=== PATIENT | male | born 1960 | race Caucasian/White ===

== ENCOUNTER 2019-10-18 14:01 | Emergency (ER) | payer BC ==
[2019-10-18] MEDS ORDERED: Sodium Chloride 0.9% 1,000 ML IV ONE (14:11)
--- NOTE | 2019-10-18 14:24 | EDM.PDOC ---
<Yvan Arreola - Last Filed: 10/18/19 14:31> ED HPI GENERAL MEDICAL PROBLEM - General Chief Complaint: Respiratory Problem Stated Complaint: SOB Time Seen by Provider: 10/18/19 14:04 generalized Pain Score (Numeric/FACES): 6 - Related Data Allergies Allergy/AdvReac Type Severity Reaction Status Date / Time No Known Allergies Allergy Verified 10/18/19 14:13 Home Meds: Home Meds Albuterol [Proair HFA] 1 puff INH ASDIRECTED 10/18/19 [History] Azithromycin 500 mg PO ASDIRECTED 10/18/19 [History] Benzonatate 100 mg PO ASDIRECTED 10/18/19 [History] Zinc 50 mg PO DAILY 14 Days #14 tablet 10/18/19 [Rx] dexAMETHasone [Decadron] 4 mg PO BID 5 Days #10 tablet 10/18/19 [Rx] Course - Vital Signs Text/Narrative:: Attending physician note I have seen and evaluated the patient with the advanced practice provider. Chief Complaint: Shortness of breath and cough Brief HPI: 59-year-old male with a past medical history of COPD presents emergency department with shortness of breath and cough not getting better after started on azithromycin and having had 2 doses. 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 He is unclear if he has had any contact with positive COVID-19 however he may or may not have been exposed. ROS: Reviewed and agree Focused Exam: VITAL SIGNS: Reviewed. GENERAL: Awake, conversant, GCS 15, appears to be mildly ill HEAD: No visible signs of trauma EYES: Pupils equal, EOM grossly intact EARS: Hearing grossly intact. MOUTH: No visible lesions NECK: Appears supple CHEST: No tachypnea, no accessory muscle use,, no audible adventitious breath sounds CARDIAC: Regular rhythm ABDOMEN: Soft, nontender, benign exam NEUROLOGIC EXAM: Awake and Alert, non-focal SKIN: No visible rashes EXTREMITIES: No deformities noted VASCULAR: Appears well perfused Procedure Note: Chest/Pulmonary Ultrasound Self-performed and read; images archived Location: Chest - Bilateral anterior Indication: Evaluation for apnea Probe: phased array -Scattered areas of abnormal pleural line -Scattered areas of B-lines -Significant effusion. No pneumothorax Impression: 1. Concerning moderate probability for COVID-19 versus underlying COPD. Recommend CT of the chest in the presence of no other abnormalities found including no hypoxemia or current fever. Patient does endorse subjective fevers. Signed by Yvan Arreola MD Assessment & Plan: Moderate probability for COVID-19. High probability for COPD exacerbation versus atypical pneumonia. Recommendation is to obtain CBC, complete metabolic panel, LDH, ferritin level, CRP, procalcitonin, and CT of the chest without contrast. Departure - Departure Disposition: Home, Self-Care 01 Clinical Impression: COVID-19 - Discharge Information Prescriptions: dexAMETHasone [Decadron] 4 mg PO BID 5 Days #10 tablet Zinc 50 mg PO DAILY 14 Days #14 tablet Instructions: COVID-19 Referrals: PCP,None [Primary Care Provider] - Forms: ED Department Discharge Additional Instructions: The following information is given to patients seen in the emergency department who are being discharged to home. This information is to outline your options for follow-up care. We provide all patients seen in our emergency department with a follow-up referral. The need for follow-up, as well as the timing and circumstances, are variable depending upon the specifics of your emergency department visit. If you don't have a primary care physician on staff, we will provide you with a referral. We always advise you to contact your personal physician following an emergency department visit to inform them of the circumstance of the visit and for follow-up with them and/or the need for any referrals to a consulting specialist. The emergency department will also refer you to a specialist when appropriate. This referral assures that you have the opportunity for follow-up care with a specialist. All of these measure are taken in an effort to provide you with optimal care, which includes your follow-up. Under all circumstances we always encourage you to contact your private physician who remains a resource for coordinating your care. When calling for follow-up care, please make the office aware that this follow-up is from your recent emergency room visit. If for any reason you are refused follow-up, please contact the [facility] Emergency Department at and asked to speak to the emergency department charge nurse. [facility] [address] [place] [id number] [address] [place] [address] Thank you for choosing the [facility] emergency department in [facility] for your medical needs today. It was a pleasure caring for you. You were seen in the emergency department for COVID -19 and respiratory symptoms. 1. Your COVID-19 screening is positive. That means you do have the coronavirus and are considered contagious. Your vital signs and oxygen saturation are well enough that you were able to monitor your symptoms at home. Continue to monitor for fever, confusion, increased shortness of breath and any of the other symptoms we discussed -if this occurs please return to the emergency room. 2. Please self quarantine over the next 2 weeks. Inform any persons that you have been in contact with since you started becoming symptomatic that you have tested positive; they should be made aware and take the appropriate steps as needed. 3. Stop the Zithromax that was prescribed yesterday. Take the medications as we prescribed as discussed. You can take NyQuil during the evening to help get a restful night sleep. 4. You may alternate Tylenol and ibuprofen as needed for pain and fever management. 5. The [facility] department will be calling you and following up with you. The [place] COVID 19 Hotline phone number , They are open Wednesday - Wednesday 7am - 7pm. Follow up with your primary care provider for re-evaluation and re-testing after the 2 week quarantine (call Elvia Irving and discuss when you should see her). <Tasneem Bain E - Last Filed: 10/18/19 16:43> ED HPI GENERAL MEDICAL PROBLEM - General Source of Information: Reports: Patient History Limitations: Reports: No Limitations - History of Present Illness INITIAL COMMENTS - FREE TEXT/NARRATIVE: HISTORY AND PHYSICAL: History of present illness: Patient is a 59-year-old male who presents to the emergency room who complains of cough and shortness of breath. He states for approximately 2 weeks he has had these mild symptoms but over the past 2 days have been more significant. He was seen yesterday in the clinic and had a chest x-ray, COVID screening results are pending. Patient was placed on azithromycin, Tessalon Perle and oral steroid. He has taken 1 dose of these medications this morning. Patient does have a history of COPD, quit smoking approximately 8 months ago, history of 10 years 1 pack/day. States the shortness of breath is most prevalent when he is "having a coughing attack". Patient denies any fever, chills, headache, change in vision, syncope or near syncope. Denies any chest pain, back pain, shortness of breath or cough. Denies any abdominal pain, nausea, vomiting, diarrhea, constipation or dysuria. Has not noted any blood in urine or stool. Patient has been eating and drinking appropriately. 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 Review of systems: As per history of present illness and below otherwise all systems reviewed and negative. Past medical history: As per history of present illness and as reviewed below otherwise noncontributory. Surgical history: As per history of present illness and as reviewed below otherwise non contributory. Social history: See social history for further information Family history: As per history of present illness and as reviewed below otherwise noncontributory. Physical exam: General: Well-developed and well-nourished 59-year-old male. Alert and oriented. Nontoxic-appearing and in no acute distress. HEENT: Atraumatic, normocephalic, pupils equal and reactive bilaterally, negativ e for conjunctival pallor or scleral icterus, mucous membranes moist, TMs normal bilaterally, throat clear, neck supple, nontender, trachea midline. No drooling or trismus noted. No meningeal signs. No hot potato voice noted. Lungs: Diminished auscultation, breath sounds equal bilaterally, chest nontender. Dry nonproductive cough noted. Heart: S1S2, regular rate and rhythm without overt murmur Abdomen: Soft, nondistended, nontender. Negative for masses or hepatosplenomegaly. Negative for costovertebral tenderness. Pelvis: Stable nontender. Skin: Intact, warm, dry. No lesions or rashes noted. Extremities: Atraumatic, moves all extremities per self without difficulty or deficits, negative for cords or calf pain. Neurovascular unremarkable. Neuro: Awake, alert, oriented. Cranial nerves II through XII unremarkable. Cerebellum unremarkable. Motor and sensory unremarkable throughout. Exam nonfocal. Notes: A bedside ultrasound was done with Dr Arreola. Patient's lab work shows that the patient has COVID-19. His vital signs remained stable. We discussed signs and symptoms that would prompt him to return to the emergency room. He feels comfortable self quarantining home over the next 2 weeks. With the patient permission we did talk with Dr. Irving, whom saw him yesterday. She is currently working in our COVID clinic and states that the [facility] department will be contacting him regarding the next steps. I did encourage him to stop taking the azithromycin and will place on Decadron and [id number] zinc. Supportive care measures were reviewed and discussed. Voices understanding and is agreeable to plan of care. Denies any further questions or concerns at this time. Diagnostics: CBC, CMP, UA, troponin, EKG, 1 view chest, CT chest without contrast, COVID, LDH, Ferritin, CRP, Procalcitonin Therapeutics: IV fluids Prescription: Decadron, Zinc Impression: COVID -19 Plan: 1. Your COVID-19 screening is positive. That means you do have the coronavirus and are considered contagious. Your vital signs and oxygen saturation are well enough that you were able to monitor your symptoms at home. Continue to monitor for fever, confusion, increased shortness of breath and any of the other symptoms we discussed -if this occurs please return to the emergency room. 2. Please self quarantine over the next 2 weeks. Inform any persons that you have been in contact with since you started becoming symptomatic that you have tested positive; they should be made aware and take the appropriate steps as needed. 3. Stop the Zithromycin that was prescribed yesterday. Take the medications as we prescribed as discussed. You can take NyQuil during the evening to help get a restful night sleep. 4. You may alternate Tylenol and ibuprofen as needed for pain and fever m anagement. 5. Follow up with your primary care provider for re-evaluation and re-testing after the 2 week quarantine (call Elvia Irving and discuss when you should see her). Definitive disposition and diagnosis as appropriate pending reevaluation and review of above. ED ROS GENERAL - Review of Systems Review Of Systems: Comprehensive ROS is negative, except as noted in HPI. ED EXAM, GENERAL - Physical Exam Exam: See Below (See dictation) Course - Vital Signs Last Recorded V/S: Last Vital Signs Temp 95.2 F L 10/18/19 14:09 Pulse 68 07/15/20 15:37 Resp 15 10/18/19 15:37 BP 131/86 10/18/19 14:09 Pulse Ox 97 10/18/19 15:37 - Orders/Labs/Meds Orders: Active Orders 24 hr Category Date Time Status EKG Documentation Completion [RC] STAT Care 10/18/19 14:11 Active Chest 1V Frontal [CR] Stat Exams 10/18/19 14:39 Taken Chest wo Cont [CT] Stat Exams 10/18/19 14:24 Ordered CRP, HIGH SENSITIVITY [REF] Stat Lab 10/18/19 15:16 Ordered CULTURE BLOOD [BC] Stat Lab 10/18/19 14:28 Received CULTURE BLOOD [BC] Stat Lab 10/18/19 14:39 Received Sodium Chloride 0.9% [Normal Saline] 1,000 ml Med 10/18/19 14:11 Active IV STAT Blood Culture x2 Reflex Set [OM.PC] Stat Oth 10/18/19 14:24 Ordered Medication Orders Sodium Chloride (Normal Saline) 1,000 mls @ 200 mls/hr IV STAT ONE Stop: 10/18/19 19:10 Last Admin: 10/18/19 14:29 Dose: 200 mls/hr Documented by: CARLOS Labs: Laboratory Tests 10/18/19 10/18/19 10/18/19 Range/Units 14:05 14:05 14:05 WBC 5.30 (4.0-11.0) K/uL RBC 4.83 (4.50-5.90) M/uL Hgb 15.8 (13.0-17.0) g/dL Hct 46.8 (38.0-50.0) % MCV 96.9 (80.0-98.0) fL MCH 32.7 H (27.0-32.0) pg MCHC 33.8 (31.0-37.0) g/dL RDW Std Deviation 46.1 (28.0-62.0) fl RDW Coeff of Karina 13 (11.0-15.0) % Plt Count 198 (150-400) K/uL MPV 9.90 (7.40-12.00) fL Neut % (Auto) 61.1 (48.0-80.0) % Lymph % (Auto) 28.9 (16.0-40.0) % Hale % (Auto) 9.6 (0.0-15.0) % Eos % (Auto) 0.2 (0.0-7.0) % Baso % (Auto) 0.2 (0.0-1.5) % Neut # (Auto) 3.2 (1.4-5.7) K/uL Lymph # (Auto) 1.5 (0.6-2.4) K/uL Hale # (Auto) 0.5 (0.0-0.8) K/uL Eos # (Auto) 0.0 (0.0-0.7) K/uL Baso # (Auto) 0.0 (0.0-0.1) K/uL Nucleated RBC % 0.0 /100WBC Nucleated RBCs # 0 K/uL Lactate 1.1 (0.20-2.00) mmol/L Sodium 140 (136-148) mmol/L Potassium 4.0 (3.5-5.1) mmol/L Chloride 106 (98-107) mmol/L Carbon Dioxide 23.2 (21.0-32.0) mmol/L BUN 10 (7.0-18.0) mg/dL Creatinine 0.9 (0.8-1.3) mg/dL Est Cr Clr Drug Dosing 81.60 mL/min Estimated GFR (MDRD) > 60.0 ml/min Glucose 101 (74-106) mg/dL Calcium 8.7 (8.5-10.1) mg/dL Ferritin (26-388) ng/mL Total Bilirubin 0.6 (0.2-1.0) mg/dL AST 31 (15-37) IU/L ALT 26 (14-63) IU/L Alkaline Phosphatase 123 H (46-116) U/L Lactate Dehydrogenase (81-234) U/L Troponin I < 0.050 (0.000-0.056) ng/mL Total Protein 7.7 (6.4-8.2) g/dL Albumin 4.0 (3.4-5.0) g/dL Globulin 3.7 (2.6-4.0) g/dL Albumin/Globulin Ratio 1.1 (0.9-1.6) Prolactin ng/mL COVID-19 (NATY) (NEGATIVE) 10/18/19 10/18/1920 Range/Units 14:05 14:05 14:55 WBC (4.0-11.0) K/uL RBC (4.50-5.90) M/uL Hgb (13.0-17.0) g/dL Hct (38.0-50.0) % MCV (80.0-98.0) fL MCH (27.0-32.0) pg MCHC (31.0-37.0) g/dL RDW Std Deviation (28.0-62.0) fl RDW Coeff of Karina (11.0-15.0) % Plt Count (150-400) K/uL MPV (7.40-12.00) fL Neut % (Auto) (48.0-80.0) % Lymph % (Auto) (16.0-40.0) % Hale % (Auto) (0.0-15.0) % Eos % (Auto) (0.0-7.0) % Baso % (Auto) (0.0-1.5) % Neut # (Auto) (1.4-5.7) K/uL Lymph # (Auto) (0.6-2.4) K/uL Hale # (Auto) (0.0-0.8) K/uL Eos # (Auto) (0.0-0.7) K/uL Baso # (Auto) (0.0-0.1) K/uL Nucleated RBC % /100WBC Nucleated RBCs # K/uL Lactate (0.20-2.00) mmol/L Sodium (136-148) mmol/L Potassium (3.5-5.1) mmol/L Chloride (98-107) mmol/L Carbon Dioxide (21.0-32.0) mmol/L BUN (7.0-18.0) mg/dL Creatinine (0.8-1.3) mg/dL Est Cr Clr Drug Dosing mL/min Estimated GFR (MDRD) ml/min Glucose (74-106) mg/dL Calcium (8.5-10.1) mg/dL Ferritin 819 H (26-388) ng/mL Total Bilirubin (0.2-1.0) mg/dL AST (15-37) IU/L ALT (14-63) IU/L Alkaline Phosphatase (46-116) U/L Lactate Dehydrogenase 325 H (81-234) U/L Troponin I (0.000-0.056) ng/mL Total Protein (6.4-8.2) g/dL Albumin (3.4-5.0) g/dL Globulin (2.6-4.0) g/dL Albumin/Globulin Ratio (0.9-1.6) Prolactin 7.8 ng/mL COVID-19 (NATY) POSITIVE H (NEGATIVE) Meds: Medications Generic Name Dose Route Start Last Admin Trade Name Freq PRN Reason Stop Dose Admin Sodium Chloride 1,000 mls @ 200 mls/hr 10/18/19 14:11 10/18/19 14:29 Normal Saline IV 10/18/19 19:10 200 mls/hr STAT ONE Administration Departure - Departure Time of Disposition: 16:43 Sepsis Event Note (ED) - Focused Exam Vital Signs: Vital Signs Temp Pulse Resp BP Pulse Ox 10/18/19 15:37 68 15 97 10/18/19 14:09 95.2 F L 76 18 131/86 95 - My Orders Last 24 Hours: My Active Orders 10/18/19 14:11 EKG Documentation Completion [RC] STAT Sodium Chloride 0.9% [Normal Saline] 1,000 ml IV STAT 10/18/19 14:24 Chest wo Cont [CT] Stat Blood Culture x2 Reflex Set [OM.PC] Stat 10/18/19 14:28 CULTURE BLOOD [BC] Stat 10/18/19 14:39 Chest 1V Frontal [CR] Stat CULTURE BLOOD [BC] Stat 10/18/19 15:16 CRP, HIGH SENSITIVITY [REF] Stat - Assessment/Plan Last 24 Hours: My Active Orders 10/18/19 14:11 EKG Documentation Completion [RC] STAT Sodium Chloride 0.9% [Normal Saline] 1,000 ml IV STAT 10/18/19 14:24 Chest wo Cont [CT] Stat Blood Culture x2 Reflex Set [OM.PC] Stat 10/18/19 14:28 CULTURE BLOOD [BC] Stat 10/18/19 14:39 Chest 1V Frontal [CR] Stat CULTURE BLOOD [BC] Stat 10/18/19 15:16 CRP, HIGH SENSITIVITY [REF] Stat
[2019-10-18 14:45] LABS: BLOOD UREA NITROGEN,BUN 10 mg/dL (7.0-18.0); CARBON DIOXIDE,CO2 23.2 mmol/L (21.0-32.0); CHLORIDE,CL 106 mmol/L (98-107); GLUCOSE RANDOM 101 mg/dL (74-106); SODIUM,NA 140 mmol/L (136-148)
--- NOTE | 2019-10-18 17:00 | CT ---
CT chest Technique: Multiple axial sections were obtained from above the lung apices inferiorly through the lung bases. Intravenous contrast not utilized. Comparison: No prior chest CT, prior chest x-ray dated 10/17/19. Findings: Visualized upper abdominal structures shows no discrete abnormality. No pericardial thickening is seen. Very minimal coronary artery calcification is seen. Slightly prominent lymph nodes are seen within the mediastinum. Largest lymph node measures 2.3 cm. No axillary adenopathy is appreciated. Lung window settings were reviewed. Slight areas of parenchymal density within the left upper lung as well as posterior right upper lung with more focal density posteriorly within the superior segment of the right lower lung as well as interstitial change within both posterior lung bases. Mild increased density noted within the right middle lobe. Bone window settings were reviewed which shows no acute osseous findings. Impression: 1. Small parenchymal densities scattered within both lungs which is certainly compatible with viral pneumonia. 2. Slightly prominent lymph nodes within the mediastinum possibly reactive. 3. Interstitial change within both lung bases most likely due to mild fibrosis. Diagnostic code #5 This report was dictated in MDT
--- NOTE | 2019-10-18 17:32 | CR ---
CT chest Technique: Multiple axial sections through the chest were obtained. Intravenous contrast was not utilized. Comparison: Prior chest x-ray performed on the same day (2:43 PM). Findings: Aorta shows no aneurysm. Small lymph nodes are seen within the mediastinum believed to be within normal limits. No axillary adenopathy is seen. No pericardial thickening is seen. Visualized upper abdominal structures shows no discrete abnormality. Slight parenchymal densities are noted within the posterior left upper lung as well as more focal density within the superior segment of the right lower lung as well as more inferiorly within the right and left lower lungs and right middle lobe. Uncertain how much of this represents areas of fibrosis, viral or bacterial pneumonia is also possible. Bone window settings were reviewed which shows no acute osseous finding. Impression: 1. Areas of increased density within both sides of the chest as noted above. Uncertain how much of these findings represent mild areas of fibrosis versus possible pneumonia (could be viral or bacterial). 2. No other acute abnormality is seen. Diagnostic code #3 This report was dictated in MDT
== END 2019-10-18 17:04 | disposition home or self-care (01) ==
LOC: MW.ED 14:01
DX: U07.1 COVID-19 (principal); J44.9 Chronic obstructive pulmonary disease, unspecified
CPT/HCPCS: 36415; 71045; 71250; 80053; 82728; 83605; 83615; 84146; 84484; 85025; 86140; 87040; 87635; 99285; J7030; U0002